=== PATIENT | female | born 1960 | race Caucasian/White ===

== ENCOUNTER 2020-06-06 03:10 | Emergency (ER) | payer MEDICAID ==
[~2020-06-06] VITALS: Ht 162.6 cm; Wt 136.0 kg
[2020-06-06 07:00] VITALS: BP 176/74
== END 2020-06-06 07:35 | disposition home or self-care (01) ==
LOC: ER 03:10
DX: I10 Essential (primary) hypertension (principal); Z71.89 Other specified counseling; F41.9 Anxiety disorder, unspecified; R00.0 Tachycardia, unspecified; E66.9 Obesity, unspecified; Z68.43 Body mass index [BMI] 50.0-59.9, adult; J45.909 Unspecified asthma, uncomplicated
CPT/HCPCS: 93005; 99285

== ENCOUNTER 2021-07-01 13:33 | Emergency (ER) | payer MEDICAID ==
[~2021-07-01] VITALS: Ht 167.6 cm; Wt 136.0 kg
[2021-07-01 13:37] VITALS: BP 185/86
[2021-07-01] MEDS ORDERED: LORAZEPAM 1MG TABLET PO ONE (14:15)
[2021-07-01 15:12] LABS: BASOPHILS % 0.6 % (0.0-2.0); EOSINOPHILS % 2.7 % (0.0-5.0); HEMOGLOBIN. 14.2 g/dL (12.0-16.0); LYMPHOCYTES % 12.2 % (20.0-50.0); MEAN CORPUSCULAR HEMOGLOBIN 29.1 pg (28.0-32.0); MEAN CORPUSCULAR VOLUME 88.3 fL (81.0-99.0); NEUTROPHILS % 76.5 % (40.0-76.0); PLATELET 260 x1000/uL (130-400); RED BLOOD CELL COUNT 4.87 mill/uL (4.2-5.4); RED CELL DISTRIBUTION WIDTH 14.2 % (11.6-14.6)
[2021-07-01 15:18] LABS: CHLORIDE 100 mEq/L (98-107)
[2021-07-01] MEDS ORDERED: HYDR10TA34 MT (15:54)
== END 2021-07-01 20:32 | disposition home or self-care (01) ==
LOC: ER 13:41
DX: F41.9 Anxiety disorder, unspecified (principal); R00.2 Palpitations; I10 Essential (primary) hypertension; J45.909 Unspecified asthma, uncomplicated; Z91.041 Radiographic dye allergy status
CPT/HCPCS: 36415; 71045; 80053; 83880; 84484; 85025; 93005; 99285

== ENCOUNTER 2021-07-05 03:34 | Emergency (ER) | payer MEDICAID ==
[~2021-07-05] VITALS: Ht 162.6 cm; Wt 149.0 kg
[~2021-07-05 03:34] MED LIST: HYDR10TA34 MT
[2021-07-05] MEDS ORDERED: LORAZEPAM 1MG TABLET PO ONE ×2 (06:15→08:45)
[2021-07-05 07:12] LABS: BASOPHILS % 0.7 % (0.0-2.0); EOSINOPHILS % 0.9 % (0.0-5.0); HEMATOCRIT. 44.2 % (36.0-48.0); HEMOGLOBIN. 14.5 g/dL (12.0-16.0); LYMPHOCYTES % 12.6 % (20.0-50.0); MEAN CORPUSCULAR HEMOGLOBIN 29.5 pg (28.0-32.0); MEAN CORPUSCULAR VOLUME 90.1 fL (81.0-99.0); MEAN PLATELET VOLUME 10.2 fl (7.4-10.4); MONOCYTES % 7.4 % (2.0-8.0); NEUTROPHILS % 78.4 % (40.0-76.0); PLATELET 235 x1000/uL (130-400); RED BLOOD CELL COUNT 4.91 mill/uL (4.2-5.4); RED CELL DISTRIBUTION WIDTH 14.1 % (11.6-14.6)
[2021-07-05 07:13] LABS: CHLORIDE 101 mEq/L (98-107)
[2021-07-05] MEDS ORDERED: BUSPIRONE HCL 5MG TABLET PO ONE ×2 (12:00→15:45)
[2021-07-05 16:15] VITALS: BP 148/89
== END 2021-07-05 16:32 | disposition home or self-care (01) ==
LOC: ER 03:34
DX: F41.9 Anxiety disorder, unspecified (principal); R00.2 Palpitations; R07.89 Other chest pain; J45.909 Unspecified asthma, uncomplicated; M19.90 Unspecified osteoarthritis, unspecified site; Z91.041 Radiographic dye allergy status
CPT/HCPCS: 36415; 71045; 80053; 83880; 84484; 85025; 93005; 99285

== ENCOUNTER 2021-07-10 09:00 | Emergency (ER) | payer MEDICAID ==
[~2021-07-10] VITALS: Ht 172.7 cm; Wt 125.0 kg
[2021-07-10] MEDS ORDERED: LORAZEPAM 2MG/ML CPJ IV ONE (10:45)
[2021-07-10 11:00] VITALS: BP 163/52
[2021-07-10 11:19] LABS: HEMATOCRIT. 41.1 % (36.0-48.0); HEMOGLOBIN. 13.8 g/dL (12.0-16.0); MEAN CORPUSCULAR HEMOGLOBIN 29.5 pg (28.0-32.0); MEAN CORPUSCULAR VOLUME 87.9 fL (81.0-99.0); MEAN PLATELET VOLUME 9.9 fl (7.4-10.4); PLATELET 215 x1000/uL (130-400); RED BLOOD CELL COUNT 4.67 mill/uL (4.2-5.4); RED CELL DISTRIBUTION WIDTH 14.3 % (11.6-14.6)
[2021-07-10 11:25] LABS: CHLORIDE 101 mEq/L (98-107)
[2021-07-10 11:43] LABS: PLATELET ESTIMATE NORMAL
[2021-07-10] MEDS ORDERED: LORAZEPAM 1MG TABLET PO SCH (12:00)
== END 2021-07-10 15:02 | disposition home or self-care (01) ==
LOC: ER 09:15
DX: F43.0 Acute stress reaction (principal); Z63.79 Other stressful life events affecting family and household; I11.0 Hypertensive heart disease with heart failure; I50.9 Heart failure, unspecified
CPT/HCPCS: 36415; 71045; 80053; 83880; 84484; 85025; 93005; 99285; J2060

== ENCOUNTER 2024-07-05 16:45 | Emergency (ER) | payer OTHER ==
[~2024-07-05] VITALS: Ht 160 cm; Wt 130.0 kg
[~2024-07-05 16:45] MED LIST changes: +FURO20TA4 PO; -HYDR10TA34 MT; +LORA10TA7 PO
[2024-07-05 16:54] VITALS: BP 159/78; PULSE 98; RESP 16; TEMP 98.2; O2SAT 97
[2024-07-05] MEDS ORDERED: DIPHENHYDRAMINE 25MG CAPSULE PO ONE (17:15)
[2024-07-05] MEDS: DIPHENHYDRAMINE 25MG CAPSULE PO NR (17:54)
[2024-07-05] MEDS: PREDNISONE 20MG TABLET PO ONE (17:54)
[2024-07-05] MEDS ORDERED: FAMO-135 MT (20:21)
[2024-07-05] MEDS ORDERED: EPIN0.3P3 IM (20:21)
[2024-07-05] MEDS ORDERED: P50 MT (20:21)
[2024-07-05] MEDS ORDERED: DIPH25TA62 MT (20:23)
== END 2024-07-06 00:17 | disposition home or self-care (01) ==
LOC: ER 16:45
DX: T78.2XXA Anaphylactic shock, unspecified, initial encounter (principal); J45.909 Unspecified asthma, uncomplicated; Z91.041 Radiographic dye allergy status; Z88.8 Allergy status to other drugs, medicaments and biological substances; X58.XXXA Exposure to other specified factors, initial encounter; Y93.89 Activity, other specified; Y92.89 Other specified places as the place of occurrence of the external cause; Y99.8 Other external cause status
CPT/HCPCS: 99291; Q0163; J7512